=== PATIENT | female | born 1995 | race American Indian/Alaskan Native ===

== ENCOUNTER 2018-04-07 12:04 | Outpatient (CLI) | payer OTHER ==
[2018-04-07] MEDS ORDERED: PRENATAL 19 TA1 EACH PO (13:51)
== END 2018-04-08 14:03 | disposition home or self-care (01) ==
LOC: OBS/DEL 12:04
DX: O26.892 Other specified pregnancy related conditions, second trimester (principal); R10.2 Pelvic and perineal pain; O23.42 Unspecified infection of urinary tract in pregnancy, second trimester; Z34.82 Encounter for supervision of other normal pregnancy, second trimester

== ENCOUNTER 2018-07-12 15:30 | Inpatient (IN) | payer OTHER ==
[~2018-07-12] VITALS: Ht 160 cm; Wt 78.0 kg
[~2018-07-12 15:30] MED LIST: PRENATAL 19 TA1 EACH PO
[2018-07-29] MEDS ORDERED: NIFE60TA3 PO (12:34)
== END 2018-08-01 13:29 | disposition home or self-care (01) | DRG 765 ==
LOC: LDR 07-29 09:43 → OB/GYN 07-30 13:08
PROVIDERS: Specialist
PROC: 4A1HXCZ Monitoring of Products of Conception, Cardiac Rate, External Approach (ICD-10-PCS; 2018-07-29)
PROC: 10D00Z1 Extraction of Products of Conception, Low, Open Approach (ICD-10-PCS; principal; 2018-07-29 13:00)
DX: O62.1 Secondary uterine inertia (principal); O13.3 Gestational [pregnancy-induced] hypertension without significant proteinuria, third trimester; O64.0XX0 Obstructed labor due to incomplete rotation of fetal head, not applicable or unspecified; Z3A.38 38 weeks gestation of pregnancy; Z37.0 Single live birth

== ENCOUNTER 2020-09-21 09:44 | Inpatient (IN) | payer OTHER ==
[~2020-09-21] VITALS: Ht 160 cm; Wt 70.3 kg
[~2020-09-21 09:44] MED LIST changes: +NIFE60TA3 PO
[2020-09-21] MEDS ORDERED: NIFEDIPINE20 MG (11:30)
== END 2020-09-23 18:14 | disposition home or self-care (01) | DRG 831 ==
LOC: LDR 09:44
PROVIDERS: ADMIT Specialist; ATTEND Specialist
PROC: 4A1HXFZ Monitoring of Products of Conception, Cardiac Rhythm, External Approach (ICD-10-PCS; principal; 2020-09-21)
PROC: BY4FZZZ Ultrasonography of Third Trimester, Single Fetus (ICD-10-PCS; 2020-09-21)
DX: O46.93 Antepartum hemorrhage, unspecified, third trimester (principal); O60.03 Preterm labor without delivery, third trimester; Z3A.29 29 weeks gestation of pregnancy; Z20.828 Contact with and (suspected) exposure to other viral communicable diseases

== ENCOUNTER 2020-11-13 05:01 | Inpatient (IN) | payer OTHER ==
[~2020-11-13] VITALS: Ht 160 cm; Wt 2.7 kg
[~2020-11-13 05:01] MED LIST changes: +NIFEDIPINE20 MG
== END 2020-11-15 13:43 | disposition home or self-care (01) | DRG 786 ==
LOC: LDR 05:01 → OB/GYN 05:01
PROVIDERS: ADMIT Specialist; ATTEND Specialist
PROC: 0UQ90ZZ Repair Uterus, Open Approach (ICD-10-PCS; 2020-11-13)
PROC: 4A1HXFZ Monitoring of Products of Conception, Cardiac Rhythm, External Approach (ICD-10-PCS; 2020-11-13)
PROC: 10D00Z1 Extraction of Products of Conception, Low, Open Approach (ICD-10-PCS; principal; 2020-11-13 07:00)
DX: O34.211 Maternal care for low transverse scar from previous cesarean delivery (principal); O71.1 Rupture of uterus during labor; Z3A.37 37 weeks gestation of pregnancy; Z37.0 Single live birth